=== PATIENT | female | born 2000 | race Caucasian/White ===

== ENCOUNTER 2023-05-26 16:47 | Emergency (ER) | payer BC, SELFPAY ==
[2023-05-26 16:56] VITALS: BP 155/102
[2023-05-26 17:11] VITALS: BMI 21.0
--- NOTE | 2023-05-26 17:11 | ED.GENMED ---
History of Present Illness
General
Chief Complaint: Flank Pain
Source: patient and family (Mother at bedside)
Exam Limitations: none
Time Seen by Provider: 05/26/23 17:09
Travel History
Have you had any contact with someone who has COVID-19?: No
Do you have any symptoms of coronavirus? Fever > 100 degrees, chills, cough, shortness of breath, sore throat, loss of taste or smell, muscle aches, or headache?: No
History of Present Illness
History of Present Illness:
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
vomiting and presents actively retching and vomiting with left flank pain.
She denies fever, denies burning or urgency with urination, denies dark urine.
Past History
Past History
ED Past Medical History: Hypothyroidism and Other (kidney stones)
Review of Systems
Review of Systems
Allergies reviewed?: Yes
All Other Systems: ROS reviewed and negative except as documented in HPI and ROS
Constitutional: Denies fever or chills
Respiratory: Denies trouble breathing
Cardiac: Denies chest pain
ABD/GI: Reports nausea and vomiting; Denies abdominal pain or diarrhea
: Reports flank pain (left); Denies dysuria or difficulty voiding
Musculoskeletal: Reports no symptoms
Skin: Reports no symptoms
Neurological: Reports no symptoms
Phy Exam
Physical Exam
Physical Exam:
GENERAL: Patient actively retching and vomiting. A&Ox3.
CONSTITUTIONAL: Afebrile.
RESPIRATORY: Regular respirations, nonlabored, lungs clear.
CARDIOVASCULAR: Regular rate and rhythm, no murmurs, no rubs.
GI: Soft, nontender, normal BS, left flank tenderness
MUSCULOSKELETAL: Moves with ease. Well perfused.
SKIN: Warm, dry, pink
PSYCH: Normal mood and affect. Well kept, interactive and appropriate
NEUROLOGIC: Awake, alert and oriented. No focal neurological deficits
Course
Orders/Labs/Results
Orders:
Orders
05/26/23 17:03
CMP [Comprehensive Metabolic Panel] Urgent
Complete Blood Count/With Diff Urgent
Test Result ONCE
05/26/23 17:10
HYDROmorphone [Dilaudid] 1 mg IV NOW STA
Ondansetron Injectable [Zofran] 4 mg IV NOW STA
05/26/23 17:11
0.9% Sodium Chloride 1000 ml [Nss] 1,000 ml IV BOLUS
05/26/23 17:12
CT Abd/pel Without Iv Or Oral Urgent
Comment:
Reason For Exam: L flank pain hx kidney stones
05/26/23 18:26
Diphenhydramine [Benadryl] 25 mg IV NOW STA
Metoclopramide [Reglan] 10 mg IV NOW STA
05/26/23 18:28
HCG, Urine Qualitative Screen Urgent
Date Specimen was Collected: 05/26/23
Time Specimen was Collected: 17:03
Urinalysis Reflex To Culture Urgent
Date Specimen was Collected: 05/26/23
Time Specimen was Collected: 17:00
Urine Microscopic Reflex Cult Urgent
Urine Culture Urgent
ROSALINO Source: U
Specimen Description:
Date Specimen was Collected: 05/26/23
Time Specimen was Collected: 17:00
05/26/23 19:51
Ketorolac [Toradol] 15 mg IV NOW STA
Tamsulosin [Flomax] 0.4 mg PO NOW STA
Abnormal Lab Results
05/26/23 05/26/23
17:03 18:28
MCH 31.2 H pg
(27.0-31.0)
MPV 10.6 H fL
(7.4-10.4)
Absolute Lymphs (auto) 4.4 H 10^3/uL
(1.2-3.4)
Absolute Monos (auto) 0.7 H 10^3/uL
(0.1-0.6)
Neutrophils % 40.1 L %
(42.2-75.2)
Carbon Dioxide 21 L mmol/L
(22-30)
Glucose 122 H mg/dl
(70-99)
Total Bilirubin 2.3 H mg/dl
(0.2-1.3)
Urine Ketones Trace A
(Negative)
Ur Occult Blood Reflex 4+ A
(Negative)
Leukocyte Esterase Rfl Trace A
(Negative)
Urine RBC 30-40 A /HPF
(0-2)
Urine Bacteria (Reflex) Many A
(Negative)
05/26/23 17:03
05/26/23 17:03
Vital Signs
Initial and Last Documented VS:
Initial Vital Signs
Temp Pulse Resp BP Pulse Ox
97.9 F 64 20 155/102 100
05/26/23 16:56 05/26/23 16:56 05/26/23 16:56 05/26/23 16:56 05/26/23 16:56
Last Documented Vital Signs
Temp Pulse Resp BP Pulse Ox
97.9 F 80 16 112/70 100
05/26/23 16:56 05/26/23 18:22 05/26/23 18:22 05/26/23 18:22 05/26/23 18:22
MDM/Problems Addressed
Differential Diagnosis Includes:
kidney stone, UTI, pyelonephritis
MDM/Problems Addressed:
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
vomiting and presents actively retching and vomiting with left flank pain.
She denies fever, denies burning or urgency with urination, denies dark urine.
05/26/2023 1817 PM
CBC normal
CMP: Total bilirubin 2.3 otherwise unremarkable
After IV fluids and pain medication patient is alert, pleasant, smiling, states pain went from 10 to 2/10
Still nauseous and starting to vomit. Reglan and benadryl given
05/26/2023 1852 PM
UA: 4+ occult blood, 30-40 RBC, Many bacteria
hCG negative
05/26/20231945 PM
CT abdomen pelvis radiology report read: IMPRESSION:
1. Obstructive uropathy secondary to a 3 mm calculus at the left ureterovesicular junction causing mild left hydroureteronephrosis.
2. Punctate bilateral nephrolithiasis.
In to reevaluate pt. Pain is minimal, she is comfortable going home. Her urologist is Dr. Basilio. She will f/u with him.
Rx for Walsh sent to her pharmacy.
*Critical Care Note
Total Time (30-74mins, 75-104mins- exclusive of procedures): Not Applicable
ED Attending Note
-
Portions of this chart may have been created with voice recognition software.� Occasional wrong word or��sound alike� substitutions may have occurred due to the inherent limitations of voice recognition software.
Discharge Plan
Departure
Patient Disposition: Home (Routine Discharge)
Date of Disposition: 05/26/23
Time of Disposition: 19:51
Patient with high blood pressure during this ER visit?: No
Condition: Good
Discharge Problem:
Calculus of distal left ureter
Instructions: Kidney Stones (DC), How to Strain Your Urine, Narcotic Pain Medication
Prescriptions:
New
hydrocodone-acetaminophen 5-325 mg tablet
1 tab PO Q6H PRN (Reason: Pain) Qty: 7 0RF
No Action
ibuprofen 200 MG tablet
400 mg PO Q8H PRN (Reason: fever)
pseudoephedrine HCl [Sudogest] 30 MG tablet
1 tab PO Q12H PRN (Reason: congestion)
olopatadine [Pataday] 2.5 ML drops
1 drp BOTH EYES DAILY
Loratadine
10 mg PO DAILY
Referrals:
Yasmany Ponce DO [Family Provider] -
Lele Basilio MD [Active] - Call in 1-3 days for appt
Activity Restrictions/Additional Instructions:
As we discussed, ibuprofen 600 mg, with food, every 6 hours as needed for mild to moderate pain
Use the Walsh if needed for worse pain. I sent a prescription to your pharmacy for the Walsh.
Call Dr. Basilio's office and ask when you should follow up
Interventions
Interventions:
KQ-Etmnse-[id number] Assessment Last Done: 05/26/23 17:42
ED-Female Genitourinary Assessment Last Done: 05/26/23 18:22
[2023-05-26 17:14] LABS: % Basophils 0.5 % (0-2); % Eosinophils 0.5 % (0-6); % Immature Granulocytes 0.2 % (0-0.5); % Lymphocytes 50.2 % (20.5-51.1); % Monocytes 8.5 % (1.7-9.3); % Neutrophils 40.1 % (42.2-75.2); Absolute Lymphocytes 4.4 10^3/uL (1.2-3.4); Absolute Monocytes 0.7 10^3/uL (0.1-0.6); Absolute Neutrophils 3.5 10^3/uL (1.4-6.5); Hematocrit 39.9 % (37.0-47.0); Hemoglobin 13.8 g/dL (12.0-16.0); Mean Corp Hgb Conc. 34.6 g/dL (33.0-37.0); Mean Corpuscular Hgb 31.2 pg (27.0-31.0); Mean Corpuscular Volume 90.1 fL (81.0-99.0); Mean Platelet Volume 10.6 fL (7.4-10.4); Nucleated Red Blood Cells % 0 %; Platelet Count 233 10^3/uL (130-400); Red Blood Cell Count 4.43 10^6/uL (4.20-5.40); Red Cell Dist. Width 12.3 % (11.5-14.5); White Blood Cell Count 8.7 10^3/uL (4.8-10.8)
[2023-05-26] MEDS: NSS 1000 IV (17:20)
[2023-05-26] MEDS: DILAUDID 1 MG IV (17:21)
[2023-05-26] MEDS: ZOFRAN 4 MG IV (17:21)
[2023-05-26 17:37] LABS: ALT (SGPT) 28 U/L (0-35); AST (SGOT) 33 U/L (14-36); Albumin 4.1 g/dl (3.5-5.0); Alkaline Phosphatase 70 U/L (38-126); Blood Urea Nitrogen 14 mg/dl (7-17); Calcium 10.2 mg/dl (8.4-10.2); Carbon Dioxide 21 mmol/L (22-30); Chloride 103 mmol/L (98-107); Estimated Creatinine Clearance 94 ml/min; Glucose 122 mg/dl (70-99); Potassium 3.9 mmol/L (3.5-5.1); Sodium 138 mmol/L (135-145); Total Bilirubin 2.3 mg/dl (0.2-1.3); Total Protein 7.1 g/dl (6.3-8.2); eGFR > 60.00
[2023-05-26 18:22] VITALS: BP 112/70
[2023-05-26 18:43] LABS: Urine Albumin Trace (Neg - Trace); Urine Bilirubin Negative (Negative); Urine Character Clear (Clear); Urine Color Yellow; Urine Glucose Negative (Negative); Urine Ketone Trace (Negative); Urine Leukocyte Trace (Negative); Urine Nitrite Negative (Negative); Urine Occult Blood 4+ (Negative); Urine Specific Gravity 1.015 (<1.030); Urine Urobilinogen Negative (Neg - 1+); Urine pH 6.5 (5.0-9.0)
[2023-05-26 18:47] LABS: HCG, Urine Qualitative Screen Negative
[2023-05-26 18:52] LABS: Urine Mucus Many
[2023-05-26 18:53] LABS: Urine Red Blood Cell 30-40 /HPF (0-2)
[2023-05-26 18:54] LABS: Urine Bacteria Many (Negative)
[2023-05-26] MEDS: BENADRYL 25 MG IV (19:31)
[2023-05-26] MEDS: REGLAN 10 MG IV (19:31)
[2023-05-26] MEDS: TORADOL 15 MG IV (20:29)
[2023-05-26] MEDS: FLOMAX 0.400000000000000022 MG PO (20:30)
[2023-05-26 20:38] VITALS: BP 126/74
== END 2023-05-26 20:41 | disposition home or self-care (01) ==
LOC: EMR 16:47
PROVIDERS: EMERGENCY PHYSICIAN Emergency Medicine; FAMILY PHYSICIAN Family Medicine
DX: N20.1 Calculus of ureter (principal); Z87.442 Personal history of urinary calculi
CPT/HCPCS: 99284; 96374; 96375 ×4; 74176; 80053; 81003; 81015; 81025; 85025; 87086